=== PATIENT | female | born 1975 | race Caucasian/White ===

== ENCOUNTER 2017-10-29 18:03 | Emergency (ER) | payer OTHER ==
[~2017-10-29] VITALS: Ht 165.1 cm; Wt 77.1 kg
[2017-10-29 18:13] VITALS: BP 141/82; PULSE 91; RESP 16; TEMP 99.5; O2SAT 96
[2017-10-29] MEDS ORDERED: ARMO30TA PO (18:21)
[2017-10-29] MEDS ORDERED: SODIUM CHLOR 0.9% 1000 ML INJ 1,000 ML IV ONE (18:59)
[2017-10-29] MEDS ORDERED: METOCLOPRAMIDE HCL 10 MG/2 ML VIAL IVP ONE (19:00)
[2017-10-29] MEDS ORDERED: SODIUM CHLORIDE 0.9% FLUSH 10 ML FLUSH IVF PRN (19:00)
[2017-10-29] MEDS ORDERED: ACETAMINOPHEN 325 MG TAB PO ONE (19:00)
[2017-10-29] MEDS ORDERED: diphenhydrAMINE HCL 50 MG/ML VIAL IVP ONE (19:00)
[2017-10-29 19:24] VITALS: PULSE 77; RESP 16; O2SAT 100
--- NOTE | 2017-10-29 19:29 | PD ---
HPI Chief Complaint: Headache Time Seen by Provider: 18:27 Travel History International Travel<30 days: No Contact w/Intl Traveler<30days: No Traveled to known affect area: No History of Present Illness HPI pt is a pleasant 42 y.o female who presents to the ED with a cc of H/A. pt states that on thursday she started having chest congestion that persisted until Thursday when she started having bi-frontal 8/10 pressure like H/A. she states that the H/A has been constant. Also reports mild photophobia, tactile fever, and bilateral Earache that also stared on Thursday. Pt denies any nausea, vomiting, neck pain, SOB, CP, urinary changes or changes in the bowel movement. She also denies sick contact and recent travel. States symptoms are moderate, gradually worsening over the past few days, associated signs symptoms as above. PFSH Past Medical History Thyroid Disease: Yes ?: Not LMP: 10/24/17 Past Surgical History Appendectomy: Yes Eye Surgery: Yes Social History Alcohol Use: No Tobacco Use: No Substance Use: No Allergies-Medications (Allergen,Severity, Reaction): Coded Allergies: No Known Allergies (Verified Allergy, Unknown, 10/29/17) Reported Meds & Prescriptions Reported Meds & Active Scripts Active Amoxicillin 875 Mg Tab 875 Mg PO BID 7 Days Reported [place] Thyroid (Thyroid) 30 Mg Tab 30 Mg PO DAILY Review of Systems Except as stated in HPI: all other systems reviewed are Neg Physical Exam Narrative GENERAL: Well-developed well-nourished, no obvious distress. SKIN: Warm and dry. No rash no wound peer HEAD: Atraumatic. Normocephalic. EYES: Pupils equal and round. No scleral icterus. No injection or drainage. HEENT: No nasal bleeding or discharge. Mucous membranes pink and moist. Maxillary sinuses are minimally tender to palpation. R TM is erythematous and has an abnormal light reflex, left TM clear. No mastoid tenderness. no cervical lymphadenopathy NECK: Trachea midline. No JVD. No nuchal rigidity, Kernig's and Brudzinski signs negative. patient is full nontender range of motion of her neck. CARDIOVASCULAR: Regular rate and rhythm. RESPIRATORY: No accessory muscle use. Clear to auscultation. Breath sounds equal bilaterally. GASTROINTESTINAL: Abdomen soft, non-tender, nondistended. Hepatic and splenic margins not palpable. MUSCULOSKELETAL: Extremities without clubbing, cyanosis, or edema. No obvious deformities. NEUROLOGICAL: Awake and alert. No obvious cranial nerve deficits. Motor grossly within normal limits. Five out of 5 muscle strength in the arms and legs. Normal speech. PSYCHIATRIC: Appropriate mood and affect; insight and judgment normal. Data Data Last Documented VS Vital Signs Date Time Temp Pulse Resp B/P (MAP) Pulse Ox O2 Delivery O2 Flow Rate FiO2 10/29/17 21:59 99.0 77 16 125/81 (96) 98 10/29/17 20:55 Room Air Orders Orders Chest, Pa & Lat (10/29/17 ) Ecg Monitoring (10/29/17 18:59) Iv Access Insert/Monitor (10/29/17 18:59) Oximetry (10/29/17 18:59) Sodium Chloride 0.9% Flush (Ns Flush) (10/29/17 19:00) Diphenhydramine Inj (Benadryl Inj) (10/29/17 19:00) Metoclopramide Inj (Reglan Inj) (10/29/17 19:00) Sodium Chlor 0.9% 1000 Ml Inj (Ns 1000 M (10/29/17 18:59) Acetaminophen (Tylenol) (10/29/17 19:00) Ed Discharge Order (10/29/17 21:26) MDM Medical Decision Making Medical Screen Exam Complete: Yes Emergency Medical Condition: Yes Differential Diagnosis Sinusitis, OM, Strep pharyngitis, Pneumonia Narrative Course Patient room to the emergency department, sign symptoms consistent with sinusitis, not febrile in the emergency department, chest x-ray negative. She has no nuchal signs and is very low risk for meningitis, discussed that I think the risks of spinal tap outweigh the benefits in this patient who is to progressing nicely and is feeling much better after Benadryl and Reglan. Discussed empiric antibiotics for sinusitis, discussed return to ED criteria follow-up with a primary care physician. She is stable for discharge per Diagnosis Primary Impression: Headache Additional Impressions: Sinusitis Otitis media, right Med/Other Pt SpecificInfo: Prescription(s) given Scripts Amoxicillin (Amoxicillin) 875 Mg Tab 875 MG PO BID for Infection for 7 Days, #14 TAB 0 Refills Prov: Victorino Olivier MD 10/29/17 Disposition: 01 DISCHARGE HOME Condition: Stable Victorino Olivier MD October 29, 2017 19:29
--- NOTE | 2017-10-29 19:51 | RADRPT ---
EXAM DATE: 10/29/2017 7:48 PM EDT AGE/SEX: 42 years / Female INDICATIONS: Cough, congestion, and fever. CLINICAL DATA: This is the patient's initial encounter. Patient reports that signs and symptoms have been present for 2 days and indicates a pain score of 0/10. MEDICAL/SURGICAL HISTORY: None. None. COMPARISON: No prior [place] exams available for comparison. FINDINGS: PA and lateral views of the chest demonstrate a normal-sized cardiac silhouette. There is no effusion , consolidation, or pneumothorax. The bones and soft tissues demonstrate no acute abnormality. CONCLUSION: No acute cardiopulmonary abnormality is identified. Electronically signed by: Baljeet Flores MD 10/29/2017 7:50 PM EDT
[2017-10-29 20:55] VITALS: BP 134/79; PULSE 76; RESP 16; TEMP 99.1; O2SAT 97
[2017-10-29] MEDS ORDERED: AMOX875T PO (21:30)
[2017-10-29 21:59] VITALS: BP 125/81; TEMP 99
== END 2017-10-29 22:01 | disposition home or self-care (01) ==
LOC: PHED 18:03
DX: R51 Headache (principal); J32.9 Chronic sinusitis, unspecified; H66.91 Otitis media, unspecified, right ear; E07.9 Disorder of thyroid, unspecified
CPT/HCPCS: 71046; 96361; 96374; 96375; 99284; J1200; J2765; J7030